=== PATIENT | female | born 1995 ===

== ENCOUNTER 2022-12-20 06:10 | Day surgery (SDC) | payer OTHER ==
[2022-12-20] MEDS ORDERED: PERCOCET 5-3251 EACH PO (11:16)
== END 2022-12-20 13:40 | disposition home or self-care (01) ==
LOC: CIR.AMB 06:10
PROVIDERS: ATTEND Surgery
DX: C73 Malignant neoplasm of thyroid gland (principal); Z20.822 Contact with and (suspected) exposure to COVID-19